=== PATIENT | female | born 1965 | race Caucasian/White ===

== ENCOUNTER 2019-09-18 15:37 | Emergency (ER) | payer OTHER ==
[2019-09-18] MEDS ORDERED: HYDROcodone 10MG/APAP 325MG 1 EA TAB PO ONE (15:48)
--- NOTE | 2019-09-18 15:58 | ED.PDOC ---
History of Present Illness - General Chief Complaint: General Stated Complaint: bilateral leg pain Time Seen by Provider: 09/18/19 15:47 Additional Information: This is a 53-year-old female, with history of epilepsy. Patient presents to the ER with bilateral calf tenderness for the past 4 days. Patient denies any trauma , patient denies any previous history of PEs or DVTs denies any clotting problems and no previous history of diabetes. Patient was able to ambulate but with some tenderness noted in lower extremity. Patiently recently moved to [place] and all her physicians are in [place]. She is a smoker social drinker denies any drug use Patient looks uncomfortable and patient looks in pain Patient denies any chest pain shortness of breath denies any coughing nausea vomiting diarrhea no abdominal pain - History of Present Illness Timing/Duration: other - 4 days Improving Factors: nothing Worsening Factors: movement Associated Symptoms: denies symptoms Allergies/Adverse Reactions: Allergies Phenytoin [From Dilantin] Allergy (Verified 09/18/19 16:18) Sulfa Antibiotics Allergy (Verified 09/18/19 16:18) Home Medications: Ambulatory Orders Acetaminophen W/ Codeine [Tylenol W/ CODEINE #3] 1 ea PO Q6HR #24 09/18/19 Review of Systems - Review of Systems Constitutional: States: no symptoms reported EENTM: States: no symptoms reported Respiratory: States: no symptoms reported Cardiology: States: no symptoms reported Gastrointestinal/Abdominal: States: no symptoms reported Genitourinary: States: no symptoms reported Musculoskeletal: States: no symptoms reported, other - Calf tenderness Skin: States: no symptoms reported Neurological: States: no symptoms reported Endocrine: States: no symptoms reported Hematologic/Lymphatic: States: no symptoms reported Family Medical History - Family History Mother Family History: Unknown Physical Exam - Physical Exam General Appearance: Obvious distress Eye Exam: bilateral normal Ears, Nose, Throat: normal ENT inspection Neck: non-tender, full range of motion, supple Respiratory: chest non-tender, lungs clear, normal breath sounds, no respiratory distress, no accessory muscle use Cardiovascular/Chest: normal peripheral pulses, regular rate, rhythm, no edema, no gallop, no JVD, no murmur Peripheral Pulses: radial,right: 2+, dorsalis pedis,right: 2+, dorsalis pedis,left: 2+ Gastrointestinal/Abdominal: normal bowel sounds, non tender, soft, no organomegaly, no pulsatile mass Back Exam: normal inspection Extremity: normal range of motion, non-tender, normal inspection, calf tenderness 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 CLINICAL HISTORY: Rule out DVT COMPARISON: None Available. TECHNIQUE: Two -dimensional and doppler sonographic evaluation of the deep venous system of the bilateral lower extremities. FINDINGS: Doppler evaluation shows normal color flow and normal phasicity and augmentation of the bilateral common femoral veins, junctions with the bilateral proximal saphenous veins, femoral veins, popliteal veins, greater saphenous veins, peroneal and posterior tibial veins. These veins showed normal occlusion with transducer pressure. Two-dimensional survey showed no echogenic clot within these veins. IMPRESSION: Duplex ultrasound evaluation of the bilateral lower extremity deep venous systems showing no evidence of thrombosis. 17:09 09/18/19 17:10 XAM DESCRIPTION: Extremity,Lower Peter Arteries: Ultrasound. CLINICAL HISTORY: rule out claudication COMPARISON: None. TECHNIQUE: Doppler evaluation of the bilateral lower extremity arterial flow waveforms and velocities. FINDINGS: Arterial waveforms in the right lower extremity are all multiphasic from the right common femoral artery through the right dorsalis pedis artery.. Arterial waveforms in the left lower extremity are multiphasic from the left common femor al artery to the right posterior tibial artery. Left dorsalis pedis artery is monophasic.. Comments: Velocities are symmetric bilaterally. IMPRESSION: Bilateral axillary arterial system showing no evidence of significant atherosclerotic occlusive disease. Possibly significant atherosclerotic occlusive disease in the left anterior tibial artery and left dorsalis pedis artery. Patient presents with bilateral lower extremity pain, I will order studies to rule out DVT to rule out arterial claudication, and studies were all negative 09/18/19 17:12 On physical exam both legs were warm to touch with good pulses and good capillary refill 09/18/19 17:12 Patient sodium was 127 potassium was slightly low, and a CO2 of 19 which may suggest a little bit of dehydration, patient will be instructed to keep an adequate diet and keep yourself hydrated, include more potassium into her diet, and I will have her follow-up primary care physician, for evaluation of bilateral lower extremity pain, for possible peripheral vascular disease, will give the patient a dose of p.o. potassium Patient CK came back elevated will suggest rhabdomyolysis which can explained this patient bilateral lower extremity pain, will give her liter normal saline will consult with hospitalist for admission 09/18/19 17:31 Patient refuses to stay, she said that she does not want to be here anymore pain is gone but she does not want to be admitted, I discussed she wants to go home I cannot force her to stay patient does not get any distress prior to being discharged, I discussed with her that she will need to keep herself hydrated at home and return to the ER immediately if there is any worsening pain or if the urine turns dark in color Departure - Departure Clinical Impression: Leg pain, bilateral Rhabdomyolysis Qualifiers: Encounter type: initial encounter Disposition: Discharge to Home or Self Care Condition: Fair Departure Forms: ED Discharge - Pt. Copy, Patient Portal Self Enrollment Instructions: Peripheral Vascular (Arterial) Disease (DC), Rhabdomyolysis (DC) Diet: regular diet, other - Keep hydrated and add more potassium to your diet Prescriptions: Acetaminophen W/ Codeine [Tylenol W/ CODEINE #3] 1 ea PO Q6HR #24 Home Medications: Ambulatory Orders Acetaminophen W/ Codeine [Tylenol W/ CODEINE #3] 1 ea PO Q6HR #24 09/18/19
--- NOTE | 2019-09-18 17:05 | US ---
EXAM DESCRIPTION: Venous,Lower Extremity LT (accession [id number]), Venous,Lower Extremity RT (accession [id number]): Ultrasound. CLINICAL HISTORY: Rule out DVT COMPARISON: None Available. TECHNIQUE: Two -dimensional and doppler sonographic evaluation of the deep venous system of the bilateral lower extremities. FINDINGS: Doppler evaluation shows normal color flow and normal phasicity and augmentation of the bilateral common femoral veins, junctions with the bilateral proximal saphenous veins, femoral veins, popliteal veins, greater saphenous veins, peroneal and posterior tibial veins. These veins showed normal occlusion with transducer pressure. Two-dimensional survey showed no echogenic clot within these veins. IMPRESSION: Duplex ultrasound evaluation of the bilateral lower extremity deep venous systems showing no evidence of thrombosis. Electronically signed by: Waqar Padgett MD 09/18/2019 5:03 PM CDT
--- NOTE | 2019-09-18 17:05 | US ---
EXAM DESCRIPTION: Venous,Lower Extremity LT (accession [id number]), Venous,Lower Extremity RT (accession [id number]): Ultrasound. CLINICAL HISTORY: Rule out DVT COMPARISON: None Available. TECHNIQUE: Two -dimensional and doppler sonographic evaluation of the deep venous system of the bilateral lower extremities. FINDINGS: Doppler evaluation shows normal color flow and normal phasicity and augmentation of the bilateral common femoral veins, junctions with the bilateral proximal saphenous veins, femoral veins, popliteal veins, greater saphenous veins, peroneal and posterior tibial veins. These veins showed normal occlusion with transducer pressure. Two-dimensional survey showed no echogenic clot within these veins. IMPRESSION: Duplex ultrasound evaluation of the bilateral lower extremity deep venous systems showing no evidence of thrombosis. Electronically signed by: Waqar Padgett MD 09/18/2019 5:03 PM CDT
--- NOTE | 2019-09-18 17:07 | US ---
EXAM DESCRIPTION: Extremity,Lower Peter Arteries: Ultrasound. CLINICAL HISTORY: rule out claudication COMPARISON: None. TECHNIQUE: Doppler evaluation of the bilateral lower extremity arterial flow waveforms and velocities. FINDINGS: Arterial waveforms in the right lower extremity are all multiphasic from the right common femoral artery through the right dorsalis pedis artery.. Arterial waveforms in the left lower extremity are multiphasic from the left common femoral artery to the right posterior tibial artery. Left dorsalis pedis artery is monophasic.. Comments: Velocities are symmetric bilaterally. IMPRESSION: Bilateral axillary arterial system showing no evidence of significant atherosclerotic occlusive disease. Possibly significant atherosclerotic occlusive disease in the left anterior tibial artery and left dorsalis pedis artery. Electronically signed by: Waqar Padgett MD 09/18/2019 5:05 PM CDT
[2019-09-18] MEDS ORDERED: POTASSIUM CHLORIDE 20 MEQ TAB ONE (17:19)
[2019-09-18] MEDS ORDERED: POTASSIUM CHLORIDE 20 MEQ TAB PO ONE (17:20)
[2019-09-18] MEDS ORDERED: SODIUM CHLORIDE 0.9% 1000ML 1,000 ML IVS ONE (17:30)
[2019-09-18 17:49] VITALS: TEMP 99.2; O2SAT 99
[2019-09-18 17:55] VITALS: BP 108/77
[2019-09-19] MEDS ORDERED: POTASSIUM CHLORIDE 20 MEQ TAB PO SCH (07:30)
== END 2019-09-18 17:55 | disposition home or self-care (01) ==
LOC: ER 15:37
DX: M79.661 Pain in right lower leg (principal); M79.662 Pain in left lower leg; G40.909 Epilepsy, unspecified, not intractable, without status epilepticus; Z86.711 Personal history of pulmonary embolism; F17.200 Nicotine dependence, unspecified, uncomplicated; E87.6 Hypokalemia

== ENCOUNTER 2019-11-18 14:58 | Emergency (ER) | payer OTHER ==
[2019-11-18] MEDS ORDERED: ACETAMINOPHEN W/COD #3 TAB 1 EA TAB PO ONE (15:20)
[2019-11-18] MEDS ORDERED: predniSONE 20 MG TAB PO ONE (15:20)
--- NOTE | 2019-11-18 15:27 | ED.PDOC ---
History of Present Illness - General Chief Complaint: Lower Extremity Injury Time Seen by Provider: 11/18/19 15:15 Source: patient Exam Limitations: no limitations - History of Present Illness Initial Comments: The patient is a 53-year-old female presented emergency room secondary to left knee pain. The patient has at least had 5 years of intermittent pain in the knee. The patient reports that in the distant past the pain all started after she dislocated it once. Since that time she has had multiple episodes of flaring of pain. She reports that she has had multiple x-rays on the knee and was recommended to see an orthopedist less than a year ago due to arthritic changes. The patient has not yet done that. No recent injury. The knee pain is been flaring for the last 24 to 48 hours. She does have some obvious anserine bursitis to the left anterior medial knee. No obvious ligamentous instability. No pain over the kneecap. No posterior pain. There may be some pain over the medial collateral ligament. No obvious swelling. No skin changes. No increased heat. Strength is preserved. No crepitus. No bruising. No recent injury. Timing/Duration: 24 hours Severity: moderate Improving Factors: immobilization Worsening Factors: movement Associated Symptoms: denies symptoms Allergies/Adverse Reactions: Allergies Phenytoin [From Dilantin] Allergy (Verified 09/18/19 16:18) Sulfa Antibiotics Allergy (Verified 09/18/19 16:18) Home Medications: Ambulatory Orders Acetaminophen W/ Codeine [Tylenol W/ CODEINE #3] 1 ea PO Q6HR #24 09/18/19 Acetamin W/Cod #3 Tab [Tylenol w/CODEINE #3] 1 ea PO Q8HRS PRN #20 tab 11/18/19 predniSONE [Prednisone] 20 mg PO DAILY #5 tab 11/18/19 Review of Systems - Review of Systems Constitutional: States: no symptoms reported EENTM: States: no symptoms reported Respiratory: States: no symptoms reported Cardiology: States: no symptoms reported Gastrointestinal/Abdominal: States: no symptoms reported Genitourinary: States: no symptoms reported Musculoskeletal: States: see HPI Skin: States: no symptoms reported Neurological: States: no symptoms reported Endocrine: States: no symptoms reported All other Systems: No Change from Baseline Past Medical History (General) - Patient Medical History Hx Congestive Heart Failure: No - Vaccination History Hx Influenza Vaccination: No - Female History Patient : No Family Medical History - Family History Mother Family History: Unknown Physical Exam - Physical Exam General Appearance: Alert Ears, Nose, Throat: hearing grossly normal Respiratory: no respiratory distress, no accessory muscle use Cardiovascular/Chest: normal peripheral pulses, no edema Peripheral Pulses: dorsalis pedis,right: 2+, dorsalis pedis,left: 2+ Rectal Exam: deferred Back Exam: no vertebral tenderness Extremity: no pedal edema, no calf tenderness, normal capillary refill, other - See history of present illness. 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 The patient is going to be placed on prednisone for the next 5 days to help reduce inflammation. She will be written for a small amount of Tylenol 3 to help reduce pain as well. Topical heat may prove beneficial. The patient can also use crutches to reduce strain on the knee. The patient does need to do as she is previously been instructed, and that is to follow-up with orthopedics for further evaluation and treatment. ER warnings were given. Follow-up with primary care doctor towards the end of the week, for repeat evaluation once inflammation is reduced. isra santamaria [id number] Departure - Departure Clinical Impression: Anserine bursitis Disposition: Discharge to Home or Self Care Condition: Fair Departure Forms: ED Discharge - Pt. Copy, Patient Portal Self Enrollment Instructions: Pes Anserine Bursitis (DC) Diet: regular diet Activity: other Prescriptions: Acetamin W/Cod #3 Tab [Tylenol w/CODEINE #3] 1 ea PO Q8HRS PRN #20 tab PRN Reason: Moderate To Severe Pain predniSONE [Prednisone] 20 mg PO DAILY #5 tab Home Medications: Ambulatory Orders Acetaminophen W/ Codeine [Tylenol W/ CODEINE #3] 1 ea PO Q6HR #24 09/18/19 Acetamin W/Cod #3 Tab [Tylenol w/CODEINE #3] 1 ea PO Q8HRS PRN #20 tab 11/18/19 predniSONE [Prednisone] 20 mg PO DAILY #5 tab 11/18/19 Additional Instructions: The patient is a 53-year-old female presenting with a recurrent flare of chronic left knee pain most likely related to osteoarthritic changes, given her history. The patient is going to be placed on prednisone for the next 5 days to help reduce inflammation. She will be written for a small amount of Tylenol 3 to help reduce pain as well. Topical heat may prove beneficial. The patient can also use crutches to reduce strain on the knee. The patient does need to do as she is previously been instructed, and that is to follow-up with orthopedics for further evaluation and treatment. ER warnings were given. Follow-up with primary care doctor towards the end of the week, for repeat evaluation once inflammation is reduced.
[2019-11-18 15:35] VITALS: TEMP 99.8
[2019-11-18 16:36] VITALS: BP 138/74; O2SAT 98
== END 2019-11-18 16:05 | disposition home or self-care (01) ==
LOC: ER 14:58
DX: M70.52 Other bursitis of knee, left knee (principal); M25.562 Pain in left knee